=== PATIENT | male | born 1975 | race Two or more races ===

== ENCOUNTER 2023-03-24 09:35 | Emergency (ER) | payer MEDICAID ==
[~2023-03-24] VITALS: Ht 167.6 cm; Wt 93.4 kg
[2023-03-24 09:38] VITALS: BP 138/82; PULSE 71; RESP 16; TEMP 97.9; O2SAT 97
[2023-03-24] MEDS ORDERED: bacitracin 15gm ointment TP ONE (10:00)
[2023-03-24] MEDS ORDERED: TETanus/Pertussis (Acell)/Diphther VAC/PF (Tdap-Adult) 0.5ml syringe IMVAC ONE (10:00)
[2023-03-24] MEDS ORDERED: AMOX-580 PO (11:26)
== END 2023-03-24 17:12 | disposition home or self-care (01) ==
LOC: ER 09:35
DX: S91.134A Puncture wound without foreign body of right lesser toe(s) without damage to nail, initial encounter (principal); W53.11XA Bitten by rat, initial encounter; Y93.89 Activity, other specified; Y92.89 Other specified places as the place of occurrence of the external cause; Y99.8 Other external cause status
CPT/HCPCS: 73630; 90471; 90715; 99283